=== PATIENT | male | born 1960 | race Caucasian/White ===

== ENCOUNTER 2024-10-01 12:29 | Emergency (ER) | payer MEDICARE, SELFPAY ==
[2024-10-01 12:31] VITALS: BP 92/69; PULSE 92; RESP 16; TEMP 36.6; O2SAT 69; BMI 27.4
[2024-10-01 12:33] VITALS: BP 103/62; PULSE 65; RESP 18; TEMP 36.8
--- NOTE | 2024-10-01 12:37 | EKG12_ITS ---
Test Reason : Blood Pressure : */* mmHG Vent. Rate : 67 BPM Atrial Rate : 67 BPM P-R Int : 176 ms QRS Dur : 94 ms QT Int : 370 ms P-R-T Axes : 54 69 27 degrees QTcB Int : 390 ms Normal sinus rhythm Normal ECG Confirmed by JOVANI YOUNG, SRINATH ([id number]), greeting card editor THOMAS RAHMAN ([id number]) on 10/05/2024 9:39:06 AM Referred By: RJ Confirmed By: SRINATH HAHN MD
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
[2024-10-01 13:15] LABS: Hematocrit 35.8 % (40-54); Hemoglobin 11.7 g/dL (13.0-16.5); Immature Granulocytes Count 0.140 X10^3/uL (0.0-0.0); Mean Corp Hgb Conc 32.7 g/dL (32-36); Mean Corpuscular Volume 95.7 fL (80-94); Mean Platelet Vol. 9.1 fl (6.2-12.0); NRBC Flagged by Analyzer 0 % (0-5); Platelet Count 459 K/mm3 (150-450); RBC Distribution Width CV 14.4 % (11.6-14.6); RBC Distribution Width SD 50.7 fl (35.1-43.9); Red Blood Count 3.74 M/mm3 (4.6-6.2); White Blood Count 11.3 K/mm3 (4.4-11.0)
[2024-10-01 13:26] LABS: Troponin T High Sensitivity 10 ng/L (<=22)
[2024-10-01 13:52] LABS: Anion Gap 10 (5-15); BUN 10 mg/dL (4-19); BUN/Creat Ratio 12.1 RATIO (10-20); Calcium,Total 8.5 mg/dL (7.6-11.0); Carbon Dioxide 25.3 mmol/L (21.0-32.0); Chloride 100 mmol/L (98-108); Estimated Creatinine Clearance 86.64 ml/min (50-250); Glucose 97 mg/dL (70-99); Potassium 4.8 mmol/L (3.3-5.1)
--- NOTE | 2024-10-01 14:23 | US_ITS ---
PROCEDURE: ABDOMEN LIMITED 10/01/2024 REASON FOR EXAM: PAIN of the right upper quadrant COMPARISON: None. FINDINGS: Liver: Normal in size measuring 13.3 cm. Normal echogenicity. No biliary ductal dilation. The major portal vein is patent with normal directional flow at midline. Gallbladder: No stones, sludge, wall thickening or tenderness. Common bile duct: Normal measuring 0.5 cm. Pancreas: Visualized portions are sonographically unremarkable. Other: Right pleural effusion. Visualized portions of the right kidney are unremarkable. No right upper quadrant ascites. US/Abdomen Limited IMPRESSION: No cholelithiasis or acute cholecystitis. Right pleural effusion. Reading Location: [id number]
[2024-10-01 14:30] VITALS: PULSE 71; RESP 15
[2024-10-01 15:09] LABS: Troponin T High Sens 2 HR 9 ng/L (<=22)
[2024-10-01 15:25] LABS: AST(SGOT) 69 U/L (<=37); Alanine Aminotransfer ALT/SGPT 112 U/L (<=46); Albumin, Serum 3.1 g/dL (3.4-4.8); Alkaline Phosphatase 121 U/L (40-129); Bilirubin, Direct 0.12 mg/dL (0.00-0.30); Globulin 3.7 g/dL (2.2-4.2); Lipase 18 U/L (13-75)
[2024-10-01 16:42] VITALS: PULSE 70; RESP 24
[2024-10-01] MEDS: HYDROcodone Bitartrate/Apap 5/325 Tablet PO (17:00)
[2024-10-01 17:04] VITALS: BP 98/68; PULSE 77; RESP 12; TEMP 36.6; O2SAT 100
== END 2024-10-01 17:05 | disposition home or self-care (01) ==
PROVIDERS: Emergency Provider Emergency Medicine; PCP Internal Medicine; Visit Provider Emergency Medicine
DX: J90 Pleural effusion, not elsewhere classified (principal); J44.9 Chronic obstructive pulmonary disease, unspecified; I25.10 Atherosclerotic heart disease of native coronary artery without angina pectoris; E78.00 Pure hypercholesterolemia, unspecified; I10 Essential (primary) hypertension; Z87.891 Personal history of nicotine dependence; R10.11 Right upper quadrant pain; R07.9 Chest pain, unspecified; E87.5 Hyperkalemia; Z79.899 Other long term (current) drug therapy; K21.9 Gastro-esophageal reflux disease without esophagitis; Z79.82 Long term (current) use of aspirin; Z79.02 Long term (current) use of antithrombotics/antiplatelets; D64.9 Anemia, unspecified
CPT/HCPCS: 76705; 80048; 80076; 83690; 84484; 85025; 93005; 96374; 99284; A4216

== ENCOUNTER 2025-02-16 14:40 | Emergency (ER) | payer MEDICARE, SELFPAY ==
[2025-02-16] VITALS (8 sets, daily range): BP systolic 129–149; BP diastolic 64–99; PULSE 67–79; RESP 16–19; TEMP 36.2; O2SAT 91–97; BMI 32.5
--- NOTE | 2025-02-16 15:11 | EKG12_ITS ---
Test Reason : CP Blood Pressure : */* mmHG Vent. Rate : 71 BPM Atrial Rate : 71 BPM P-R Int : 172 ms QRS Dur : 96 ms QT Int : 370 ms P-R-T Axes : 76 83 71 degrees QTcB Int : 402 ms Normal sinus rhythm Normal ECG Confirmed by ETELVINA YONUG, CHU ([id number]), field map editor THOMAS RAHMAN ([id number]) on 02/22/2025 6:13:48 AM Referred By: Confirmed By: CHU MAIN MD
[2025-02-16 15:33] LABS: Hematocrit 43.3 % (40-54); Hemoglobin 14.6 g/dL (13.0-16.5); Immature Granulocytes Count 0.040 X10^3/uL (0.0-0.0); Mean Corp Hgb Conc 33.7 g/dL (32-36); Mean Corpuscular Volume 93.9 fL (80-94); Mean Platelet Vol. 9.8 fl (6.2-12.0); NRBC Flagged by Analyzer 0 % (0-5); Platelet Count 265 K/mm3 (150-450); RBC Distribution Width CV 14.4 % (11.6-14.6); RBC Distribution Width SD 49.6 fl (35.1-43.9); Red Blood Count 4.61 M/mm3 (4.6-6.2); White Blood Count 10.0 K/mm3 (4.4-11.0)
--- NOTE | 2025-02-16 15:33 | EDS_ITS ---
HPI History of Present Illness Chief Complaint: Chest Pain Narrative Narrative: Patient is a 64-year-old male presenting to the emergency department for left- sided chest pain for the past week. Patient has a past medical history of COPD, CAD, pancreatitis, hypertension, hyperlipidemia and pneumonia in September. Patient follows with cardiology, Dr. England. Patient states that for the past month he has had a productive cough of yellowish sputum. States that he feels short of breath with any activity. Over the past week he has developed intermittent left-sided chest pain. It does not radiate anywhere. It does not go to the back, jaw or arms. Denies any diaphoresis, nausea or vomiting. Denies any lower extremity edema. Denies any history of DVT or PE. Denies any recent travel, hospitalizations or surgeries. States that the pain feels like a stabbing sensation. [facility] Medical History COPD (chronic obstructive pulmonary disease) FABY (acute kidney injury) [place] esophagus CAD (coronary artery disease) Pancreatitis NSTEMI (non-ST elevated myocardial infarction) Hypertension High blood cholesterol Pneumonia Medical History no medical history Home Medications ?Medication ?Instructions ?Recorded ?Last Taken ?Type albuterol sulfate 2.5 mg/3 mL 2.5 mg continuous nebuli zation Q4H 10/01/24 02/16/25 History (0.083 %) solution for nebulization PRN wheezing albuterol sulfate 90 mcg/actuation 2 puff inhalation Q 4H PRN wheezing 10/01/24 02/16/25 History aerosol inhaler amlodipine 5 mg tablet 5 mg PO DAILY heart 10/01/24 02/16/25 History aspirin 81 mg chewable tablet 1 tab PO DAILY heart 02/16/25 History atorvastatin 20 mg tablet 20 mg PO QHS cholesterol 02/15/25 History carvedilol 12.5 mg tablet 12.5 mg PO BID heart 5 02/16/25 History clopidogrel 75 mg tablet 75 mg PO DAILY heart 5 02/16/25 History coenzyme Q10 100 mg capsule 100 mg PO BID supplement 0 10/01/24 02/16/25 History lisinopril 40 mg tablet 40 mg PO DAILY blood pressur e 10/01/24 02/16/25 History nitroglycerin 0.4 mg sublingual 0.4 mg sublingual PRN chest pain 10/01/24 02/14/25 History tablet olopatadine 0.1 % eye drops 1 drp ophthalmic (eye) BID 10/01/24 02/16/25 History omeprazole 40 mg capsule,delayed 40 mg PO DAILY gerd 0 10/01/24 02/16/25 History release umeclidinium 62.5 mcg/actuation 1 inh inhalation DAILY 10/01/24 Unknown History blister powder for inhalation (Incruse Ellipta) doxycycline hyclate 100 mg capsule 100 mg PO BID 7 day s #14 caps 02/16/25 Unknown Rx prednisone 20 mg tablet 40 mg (2 x 20 mg) PO DAILY 5 days 02/16/25 Unknown Rx #10 tabs thiamine HCl (vitamin B1) 100 mg 100 mg PO DAILY suppl ement 02/16/25 02/16/25 History capsule Allergy/AdvReac Type Severity Reaction Status Date / Time No Known Allergies Allergy Verified 02/16/25 14:42 Family History no significant family his Surgical History H/O heart artery stent Surgical History no surgical history Social History Smoking Status: Current some day smoker tobacco type: cigarettes ROS ROS ED ROS Narrative see HPI EXAM Physical Exam Narrative Exam Narrative: Vital signs: Reviewed General: Alert and oriented x 3. No acute distress. Well-appearing, nontoxic. HEENT: Head is normocephalic and atraumatic, sinuses nontender, pupils equal round and reactive. Nares are patent. Oropharynx and throat exams normal. Neck: Supple without lymphadenopathy nontender Cardiovascular: Regular rate and rhythm, no murmurs. No rubs or gallops. Normal S1 and S2 Respiratory: Inspiratory and expiratory wheezing in all lung meyer. No rhonchi or rales. Abdominal: Soft and nontender. Normal bowel sounds. No guarding or rebound. Nonsurgical abdomen Extremities: No lower extremity edema. No tenderness. No bruising. Normal range of motion. Normal sensation. Skin: No rash or redness. The rest of the physical exam is unremarkable Const Vital Signs: 02/16/25 14:40 02/16/25 15:24 02/16/25 15:40 Temperature 97.1 F L Temperature Source Temporal Pulse Rate 74 67 74 Respiratory Rate 18 18 17 Respiratory Pattern Normal Blood Pressure 149/99 H Blood Pressure Mean 115 Pulse Ox 97 94 Oxygen Delivery Method Room Air Room Air 02/16/25 16:00 02/16/25 17:34 02/16/25 17:34 Temperature Temperature Source Pulse Rate 72 78 76 Respiratory Rate 17 19 H 19 H Respiratory Pattern Blood Pressure 137/64 H Blood Pressure Mean 88 Pulse Ox 94 92 92 Oxygen Delivery Method Room Air 02/16/25 17:45 02/16/25 18:00 02/16/25 18:12 Temperature 97.1 F L Temperature Source Pulse Rate 79 75 75 Respiratory Rate 16 18 18 Respiratory Pattern Blood Pressure 129/69 H 129/69 H Blood Pressure Mean 89 89 Pulse Ox 94 91 91 Oxygen Delivery Method MDM MDM MDM Narrative Medical decision making narrative: Patient is a 64-year-old male presenting to the emergency department for 1 week of chest pain and 1 month of shortness of breath with activity and productive cough. Patient was seen and examined. Vitals are stable. BP of 149/99. Normal pulse of 74, respirations of 18, saturating 97% on room air. Differential includes but is not limited to: COPD exacerbation, bronchitis, pneumonia, ACS, URI, CHF, less likely PE or aortic pathology EKG shows normal sinus rhythm at a rate of 71 with no ischemic changes. No dysrhythmia. Patient given 2 DuoNeb breathing treatments and Solu-Medrol for likely COPD exacerbation with wheezing on exam. CBC with no leukocytosis and normal hemoglobin. BMP with no significant normalities. Troponin reflex within normal limits, no significant delta change. BNP within normal limits. Chest x-ray reviewed by myself, no opacities, pneumothorax or wide mediastinum. Radiology read in agreement. Patient reevaluated after breathing treatments and steroids and states that he is feeling better. Likely COPD exacerbation versus bronchitis. Given the incr eased sputum production and change of color and his COPD history will prescribe doxycycline for home. Also prescribe a short course of steroids. States that he does have enough breathing treatments at home to use as needed. Patient discharged from the Emergency Department. I do not feel that the patient's evaluation reveals any acute reason for admission at this time. I instructed them to either follow-up with their primary care physician or promptly return to the Emergency Department for reevaluation should symptoms worsen or new symptoms develop. I explained what symptoms would indicate the need to return to the emergency department. Shared decision making was used. The patient voiced understanding of the treatment plan and is agreeable with it. Clinical impression Chest pain COPD exacerbation History & Record Review Discussion w/independent historian: Patient Lab Data Attestation: I reviewed the patient's lab results. Labs: Laboratory Results - last 24 hr 02/16/25 02/16/25 15:00 17:02 WBC 10.0 RBC 4.61 Hgb 14.6 Hct 43.3 MCV 93.9 MCH 31.7 MCHC 33.7 RDW Std Deviation 49.6 H RDW Coeff of Tomas 14.4 Plt Count 265 MPV 9.8 Immature Gran % (Auto) 0.400 Neut % (Auto) 53.4 Lymph % (Auto) 30.9 [place] % (Auto) 9.6 Eos % (Auto) 5.1 H Baso % (Auto) 0.6 Absolute Neuts (auto) 5.4 Absolute Lymphs (auto) 3.09 Nucleated RBC % 0 Sodium 137 Potassium 4.3 Chloride 100 Carbon Dioxide 24.2 Anion Gap 12 BUN 13 Creatinine 0.75 Estim Creat Clear Calc 96.22 Est GFR (MDRD) Non-Af 100 BUN/Creatinine Ratio 17.3 Glucose 97 Calcium 9.0 Troponin T High Sens 8 D Troponin T Hi Sens 2 Hr 7 NT pro BNP II 69 Radiography Chest X-Ray - ED: 2 View, Read by ED Physician and No Acute Disease Diagnostic Testing: Clinical Impression(s) from Imaging Studies Chest X-Ray 02/16/25 15:40 IMPRESSION: No focal consolidations. Reading Location: [facility] Discharge Plan Triage Chief Complaint: Chest Pain ED Provider: Paris Rogers Dx/Rx/DC Orders Clinical Impression: COPD exacerbation, Chest pain of uncertain etiology Instructions: ED COPD Flare, ED Chest Pain, Uncertain Cause Prescriptions: New doxycycline hyclate 100 mg capsule 100 mg PO BID 7 Days Qty: 14 0RF prednisone 20 mg tablet 40 mg PO DAILY 5 Days Qty: 10 0RF No Action atorvastatin 20 mg tablet 20 mg PO QHS carvedilol 12.5 mg tablet 12.5 mg PO BID albuterol sulfate 2.5 mg /3 mL (0.083 %) solution for nebulization 2.5 mg continuous nebulization Q4H PRN (Reason: wheezing) clopidogrel 75 mg tablet 75 mg PO DAILY amlodipine 5 mg tablet 5 mg PO DAILY omeprazole 40 mg capsule,delayed release(DR/EC) 40 mg PO DAILY olopatadine 0.1 % drops 1 drp ophthalmic (eye) BID nitroglycerin 0.4 mg tablet, sublingual 0.4 mg sublingual PRN aspirin 81 mg tablet,chewable 1 tab PO DAILY albuterol sulfate 90 mcg/actuation HFA aerosol inhaler 2 puff INHALATION Q4H PRN (Reason: wheezing) lisinopril 40 mg tablet 40 mg PO DAILY coenzyme Q10 100 mg capsule 100 mg PO BID Incruse Ellipta 62.5 mcg/actuation blister with device 1 inh inhalation DAILY thiamine HCl (vitamin B1) 100 mg capsule 100 mg PO DAILY Primary Care Provider: Silva Padilla Referrals: Silva Padilla MD [Primary Care Provider, Internal Medicine] Activity Restrictions/Additional Instructions: Take the steroid and antibiotic as prescribed. Use your breathing treatments as needed. Your evaluation in the Emergency Department did not reveal any acute r renee for admission. However, I want to emphasize that you may be early in the course of a disease process or illness even if it is not present. For this reason you should follow-up within 24 hours for reevaluation with either your primary care physician or if necessary back here in the Emergency Department. You should return to the Emergency Department immediately if your symptoms worsen or new symptoms develop. Print Language: Maltese Disposition Disposition: Home, Self Care Discharge Date/Time: 02/16/25 18:16
--- NOTE | 2025-02-16 15:40 | RAD_ITS ---
PROCEDURE: CHEST PA AND LATERAL 02/16/2025 REASON FOR EXAM: CHEST PAIN TECHNIQUE: Procedure Code: RADCXR Modality: DX Procedure: CHEST PA AND LATERAL FINDINGS: No focal consolidation. Bibasilar subsegmental atelectasis. No pleural effusion or pneumothorax. Cardiac silhouette is within normal limits. No acute fractures. RAD/Chest PA and Lateral IMPRESSION: No focal consolidations. Reading Location: [id number]
[2025-02-16 15:52] LABS: Anion Gap 12 (5-15); BUN 13 mg/dL (4-19); BUN/Creat Ratio 17.3 RATIO (10-20); Calcium,Total 9.0 mg/dL (7.6-11.0); Carbon Dioxide 24.2 mmol/L (21.0-32.0); Chloride 100 mmol/L (98-108); Estimated Creatinine Clearance 96.22 ml/min (50-250); Glucose 97 mg/dL (70-99); Potassium 4.3 mmol/L (3.3-5.1); Pro- Brain NATRIURETIC PEPTIDE 69 pg/mL (<=900); Troponin T High Sensitivity 8 ng/L (<=22)
[2025-02-16 17:35] LABS: Troponin T High Sens 2 HR 7 ng/L (<=22)
== END 2025-02-16 18:16 | disposition home or self-care (01) ==
PROVIDERS: Emergency Provider Student in an Organized Health Care Education/Training Program; PCP Internal Medicine; Visit Provider Student in an Organized Health Care Education/Training Program
DX: J44.1 Chronic obstructive pulmonary disease with (acute) exacerbation (principal); E78.00 Pure hypercholesterolemia, unspecified; I25.10 Atherosclerotic heart disease of native coronary artery without angina pectoris; I10 Essential (primary) hypertension; R07.89 Other chest pain; Z79.899 Other long term (current) drug therapy; Z79.82 Long term (current) use of aspirin; Z79.02 Long term (current) use of antithrombotics/antiplatelets; F17.210 Nicotine dependence, cigarettes, uncomplicated
CPT/HCPCS: 71046; 80048; 83880; 84484; 85025; 93005; 94640; 96374; 99283; A4216